=== PATIENT | female | born 1965 | race Caucasian/White ===

== ENCOUNTER → 2020-02-04 | Outpatient (CLI) | payer BC, OTHER ==
[~2020-02-04] MED LIST: METR70GE2 TP; SOOLANTRA TP; [UNRECOGNIZED DRUG - CODE] TP; [UNRECOGNIZED DRUG - CODE] TP
[2020-02-04 11:08] LABS: BASOPHILS % (AUTO) 1 % (0-1); EOSINOPHILS % (AUTO) 4 % (1-7); LYMPHOCYTES % (AUTO) 30 % (22-44); MEAN CORPUSCULAR HEMOGLOBIN 29.8 pg (27.0-34.8); MEAN CORPUSCULAR HGB CONC 32.3 g/dL (32.4-35.8); MEAN PLATELET VOLUME 8.7 fL (7.4-10.4); MONOCYTES % (AUTO) 7 % (2-9); NEUTROPHILS % (AUTO) 59 % (42-75); PLATELET COUNT 288 x10^3/uL (130-400); RED BLOOD COUNT 4.63 x10^6/uL (3.82-5.3)
[2020-02-04 11:14] LABS: INTERNATIONAL NORMALIZED RATIO 0.95 (0.93-1.1); PROTHROMBIN TIME 10.1 Seconds (9.6-11.5)
[2020-02-04 11:16] LABS: ALBUMIN 3.7 g/dL (3.4-5.0); ANION GAP 4 mmol/L (5-15); CALCIUM 8.7 mg/dL (8.5-10.1); CHLORIDE 108 mmol/L (98-107)
[2020-02-04 11:19] LABS: ALANINE AMINOTRANSFERASE 17 U/L (12-78); ALKALINE PHOSPHATASE 83 U/L (45-117); BILIRUBIN,TOTAL 0.4 mg/dL (0.2-1.0); CREATININE 1.11 mg/dL (0.55-1.02); MD NO; TOTAL PROTEIN 7.6 g/dL (6.4-8.2)
== END | disposition home or self-care (01) ==
LOC: STAR 09:38
PROVIDERS: ATTEND Obstetrics & Gynecology
DX: Z01.812 Encounter for preprocedural laboratory examination (principal); Z20.828 Contact with and (suspected) exposure to other viral communicable diseases; R19.09 Other intra-abdominal and pelvic swelling, mass and lump
CPT/HCPCS: 36415; 71046; 80053; 85025; 85610; 85730; 86304; 87635; 93005

== ENCOUNTER 2020-02-09 05:39 | Day surgery (SDC) | payer BC, OTHER ==
[~2020-02-09] VITALS: Ht 160 cm; Wt 83.0 kg
[2020-02-09] MEDS ORDERED: MIDAZOLAM 1 MG/ML, 2ML ONE (06:39)
[2020-02-09] MEDS ORDERED: FENTANYL PF 250 MCG/5ML ONE ×2 (06:39→08:20)
[2020-02-09] MEDS ORDERED: CEFOTETAN 1 GM ONE (06:41)
[2020-02-09] MEDS ORDERED: ONDANSETRON 2MG/ML, 2ML ONE (06:42)
[2020-02-09] MEDS ORDERED: DEXAMETHASONE 4 MG/ML, 1ML ONE (06:42)
[2020-02-09] MEDS ORDERED: KETOROLAC 30 MG/1 ML ONE (06:42)
[2020-02-09] MEDS ORDERED: ROCURONIUM 10MG/ML,5ML ONE (06:42)
[2020-02-09] MEDS ORDERED: CEFAZOLIN 1,000 MG ONE (06:42)
[2020-02-09] MEDS ORDERED: GLYCOPYRROLATE 0.2MG/1ML, 5ML ONE (06:42)
[2020-02-09] MEDS ORDERED: NEOSTIGMINE 1 MG/ML, 10ML ONE (06:42)
[2020-02-09] MEDS ORDERED: PROPOFOL 10 MG/ML, 20ML ONE (06:42)
[2020-02-09] MEDS ORDERED: CHLORHEXIDINE 15 ML UDC MM ONE (07:00)
[2020-02-09] MEDS ORDERED: hydrALAzine 20 MG/ML, 1ML IV PRN (07:00)
[2020-02-09] MEDS ORDERED: PROMETHAZINE 25 MG/ML, 1ML IVPush PRN (07:00)
[2020-02-09] MEDS ORDERED: CEFOTETAN PMX 2GM/50ML 50 ML IVPB ONE (07:00)
[2020-02-09] MEDS ORDERED: morphine SULFATE 10 MG/ML, 1ML IVPush PRN (07:00)
[2020-02-09] MEDS ORDERED: ACETAMINOPHEN 325 MG TABLET PO PRN (07:00)
[2020-02-09] MEDS ORDERED: LABETALOL 5MG/ML, 20ML IV PRN (07:00)
[2020-02-09] MEDS ORDERED: MEPERIDINE/PF 25MG/0.5ML IVPush PRN (07:00)
[2020-02-09] MEDS ORDERED: LACTATED RINGERS 1,000 ML IV SCH (07:00)
[2020-02-09] MEDS ORDERED: HALOPERIDOL 5 MG/ML IV PRN (07:00)
[2020-02-09] MEDS ORDERED: OXYcodone 5 MG/5 ML ORAL.SOL UDC PO PRN ×2 (07:00→13:30)
[2020-02-09] MEDS ORDERED: HYDROmorphone 1 MG/ML, 1ML INJ IVPush PRN (07:00)
[2020-02-09 07:03] LABS: HCG UR SG 1.021 (1.003-1.030)
[2020-02-09] MEDS ORDERED: BUPIVACAINE/PF 0.25% ONE (07:05)
[2020-02-09] MEDS ORDERED: HEPARIN 1,000 UNITS/ML, 10ML ONE (07:06)
[2020-02-09] MEDS ORDERED: EPINEPHRINE 1 MG/ML, 1ML ONE (07:06)
[2020-02-09] MEDS ORDERED: INDOCYANINE GREEN 25 MG VIAL ONE (07:06)
[2020-02-09] MEDS ORDERED: SCOPOLAMINE 1MG PATCH TD ONE ×2 (07:09→16:09)
[2020-02-09] MEDS ORDERED: BUPIVACAINE/PF-EPI 0.25% 1:200K INFIL ONE (07:55)
[2020-02-09] MEDS ORDERED: ACETAMINOPHEN 650 MG/20.3 ML UDC ONE (09:34)
[2020-02-09] MEDS ORDERED: OXYcodone 5 MG/5 ML ORAL.SOL UDC ONE (09:34)
[2020-02-09] MEDS ORDERED: FENTANYL PF 100 MCG/2ML ONE (09:34)
[2020-02-09] MEDS: FENTANYL PF 100 MCG/2ML IV PRN ×4 (09:39→10:09)
== END 2020-02-09 16:00 | disposition home or self-care (01) ==
LOC: OUT 05:39
PROVIDERS: ATTEND Obstetrics & Gynecology
DX: Z30.432 Encounter for removal of intrauterine contraceptive device (principal); N80.0 Endometriosis of uterus; D25.1 Intramural leiomyoma of uterus; D25.2 Subserosal leiomyoma of uterus; N83.291 Other ovarian cyst, right side; N83.292 Other ovarian cyst, left side; N73.6 Female pelvic peritoneal adhesions (postinfective); E66.9 Obesity, unspecified; Z68.33 Body mass index [BMI] 33.0-33.9, adult; Z79.899 Other long term (current) drug therapy; Z87.891 Personal history of nicotine dependence; Z88.0 Allergy status to penicillin; Z90.5 Acquired absence of kidney; Z80.41 Family history of malignant neoplasm of ovary
CPT/HCPCS: 36415; 58301; 58571; 81025; 86850; 86900; 86923; 88307; J0171; J0690; J1100; J2250; J2405; J2704; J2710; J3010; J7120; S2900; J1644; J1885